=== PATIENT | female | born 1965 | race Caucasian/White ===

== ENCOUNTER 2023-02-12 08:57 | Outpatient (REF) | payer OTHER, SELFPAY ==
[2023-02-12 16:11] LABS: Urine Cytology See Pathology rpt
== END 2023-02-12 08:58 | disposition home or self-care (01) ==
LOC: HO.LNP 08:57
PROVIDERS: PCP Internal Medicine; Visit Provider Nurse Practitioner Family
DX: R31.29 Other microscopic hematuria (principal); N28.89 Other specified disorders of kidney and ureter
CPT/HCPCS: 88112; 99202

== ENCOUNTER 2023-03-12 10:25 | Outpatient (REF) | payer OTHER, SELFPAY ==
--- NOTE | ~2023-03-12 | MR_ITS ---
EXAMINATION: MRI kidney with and without contrast CLINICAL INFORMATION: Follow-up left renal mass COMPARISON: Previous ultrasound August 2019, MRI of the abdomen September [address] of the abdomen and pelvis August 2018 TECHNIQUE: Sagittal axial and coronal sequences through the abdomen with and without IV contrast. Patient received 0.5 mL IV Gadavist contrast. FINDINGS: The lung bases are clear. The liver is normal in size and contour. There is slight signal loss in the liver on out of phase sequences suggestive of mild fatty infiltration. Liver is otherwise normal. No focal liver lesion. Normal gallbladder. No biliary duct dilatation. The pancreas is normal. The main pancreatic duct does not appear dilated. The spleen is normal. Adrenal glands are normal. There is a 1.3 x 1.7 x 1.6 cm lesion exophytic to the of the left kidney. This is low signal on T1-weighted sequences. This is slightly heterogeneous but predominantly high signal on T2 weighted sequences. This demonstrates enhancement suggestive of a solid renal mass. This is increased in size from previous MRI with this measured 1.1 x 1 x 1.1 cm. The kidneys are otherwise normal. Visualized bowel is normal. No ascites or adenopathy. No hernia. Normal vascular structures. The left renal vein and IVC are patent. Mild degenerative disc disease. Otherwise normal bone marrow signal. MR/MR kidney wo/w con IMPRESSION: Interval increase in size in the solid mass exophytic to the lower pole of the left kidney now measuring 1.3 x 1.7 x 1.6 cm. Mild fatty infiltration of the liver.
== END 2023-03-12 10:26 | disposition home or self-care (01) ==
LOC: HO.MRI 10:25
PROVIDERS: PCP Internal Medicine; Visit Provider Nurse Practitioner Family
DX: N28.89 Other specified disorders of kidney and ureter (principal)
CPT/HCPCS: 74181; A9585

== ENCOUNTER 2023-03-20 10:00 | Outpatient (REF) | payer OTHER, SELFPAY ==
--- NOTE | ~2023-03-20 | US_ITS ---
EXAMINATION: US RETROPERITONEAL COMPLETE (RENAL) CLINICAL INFORMATION: Kidney cyst, microscopic hematuria. COMPARISON: MR kidney without contrast dated 03/12/2023. Renal only ultrasound dated 08/22/2019 and 02/28/2019. CT abdomen and pelvis with contrast dated 09/12/2018. TECHNIQUE: Real-time imaging of the kidneys and bladder. FINDINGS: RIGHT KIDNEY: 10.5 x 3.5 x 5.1 cm (SAG x AP x TRV). The kidney is normal in size, contour, and echogenicity. Renal cortical thickness is normal. No renal calculi or focal parenchymal lesions. LEFT KIDNEY: 11.8 x 5.5 x 6.0 cm (SAG x AP x TRV). The kidney is normal in size, contour, and echogenicity. Renal cortical thickness is normal. No calculi or focal parenchymal lesions. There is mild pelviectasis, without christian hydronephrosis. BLADDER: Well distended and normal. Bilateral ureteral jets are demonstrated. Prevoid bladder volume is 313 mL. Postvoid bladder volume is 10 mL. US/US retroperitoneal comp IMPRESSION: Unremarkable examination.
== END 2023-03-20 10:01 | disposition home or self-care (01) ==
LOC: HO.US 10:00
PROVIDERS: PCP Internal Medicine; Visit Provider Nurse Practitioner Family
DX: N28.1 Cyst of kidney, acquired (principal); R31.29 Other microscopic hematuria
CPT/HCPCS: 76770

== ENCOUNTER 2023-03-27 08:40 | Outpatient (REF) | payer OTHER, SELFPAY | END 2023-03-27 08:41 | disposition home or self-care (01) | LOC: HO.LNP 08:40 | PROVIDERS: PCP Internal Medicine; Visit Provider Nurse Practitioner Family | DX: N39.0 Urinary tract infection, site not specified (principal); N28.89 Other specified disorders of kidney and ureter; R31.29 Other microscopic hematuria; R35.0 Frequency of micturition; Z79.899 Other long term (current) drug therapy | CPT/HCPCS: 87086; 99212 ==

== ENCOUNTER 2023-05-01 08:33 | Outpatient (AMB) | payer OTHER, SELFPAY ==
--- NOTE | 2023-05-01 08:55 | MHC.OFFVIS ---
Intake Intake Visit Reasons: follow up/PVR Intake Note: Patient is present follow up PVR/UTI Urology Medications: previously treated with macrobid Blood Thinner: none PVR: 16ml's Mobile Development Manager Required: No Accompanied by: Self / Same As Patient Allergies No Known Allergies Allergy (Verified 05/03/23 16:51) Medication List - Last Reconciled 05/03/23 by DARRYL Jenkins ascorbate calcium (vitamin C) 500 mg PO DAILY cholecalciferol (vitamin D3) 125 mcg PO DAILY estradiol 0.01%(0.1mg/gram) vaginally 3 times a week; pea sized amount to urethra 3 times a week 30 days famotidine (Heartburn Relief (famotidine)) 10 mg PO BID HPI HPI Comments History of Present Illness Details Chyna is a pleasant 57-year-old female patient of . She presents to the office today for a follow up. Of note, patient was seen approxitmately 2 months ago at which time a retroperitoneal ultrasound was ordered for further assessment evaluation. Of note, patient with a past medical history of renal cysts at which time a MRI renal mass protocol was ordered during her last office visit. MRI 03/10-- showing interval increase in size in the solid mass exopphytic to the lower pole of the left kidney now measuring 1.3 x 1.7 x 1.6 cm. Mild fatty infiltration of the liver. In review of patient's chart it appears when patient was following with Dr. Teixeira left lower pole exophytic renal mass measured approximately 1.9 cm. She has had a prior negative renal biopsy in 2019. Discussed surveillance monitoring versus further interventions with repeat biopsy. Recent retroperitoneal ultrasound results reviewed with the patient today. Right kidney with no calculi, lesions, and or hydronephrosis noted. Left kidney with no calculi or lesions noted. The bladder is well distended and normal. Pre void bladder volume is approximately 315 mL. Postvoid bladder volume is 10 mL. In office urinalysis results reviewed with the patient today. She denies urinary urgency, incontinence, nocturia, hematuria, dysuria, foul smelling urine, changes to urinary stream, flank pain, fever, and or chills. PVR 16mls. She otherwise denies any issues or concerns at this time. She discusses her upcoming trip to [place] to visit her special needs son who will be undergoing a biopsy. [facility] Medical History ROB II (cervical intraepithelial neoplasia II) Class 1 obesity Depression, major Diverticulosis of colon Dysphagia Family history of colon cancer Family history of glaucoma in father Hiatal hernia with gastroesophageal reflux Internal hemorrhoids Kidney mass LGSIL Pap smear of vagina LACHO (obstructive sleep apnea) Pain in right shoulder Polyp of sigmoid colon Pseudocholinesterase deficiency Vitamin D deficiency Surgical History History of colonoscopy Review of Systems Const All systems reviewed & are unremarkable except as noted in HPI and below Reports no additional complaints Eyes Reports no additional complaints ENT Reports no additional complaints Card Reports no additional complaints Resp Reports no additional complaints GI Reports no additional complaints Reports as per HPI Musc Reports no additional complaints Neuro Reports no additional complaints Psych Reports no additional complaints Taj/Lymph Reports no additional complaints Aller/Immun Reports no additional complaints Physical Exam Const General: cooperative, healthy appearing, comfortable, no acute distress, well developed, alert and awake Orientation/consciousness: patient oriented x3 Limitations: no limitations HEENT Head: Yes normal to inspection, Yes normocephalic and Yes atraumatic Ears: hearing grossly normal bilaterally Eyes General: appearance normal, both eyes and all related structures Neck Neck: Yes normal visual inspection and Yes trachea midline Chest Chest palpation & inspection: normal inspection of the chest Resp Effort & Inspection: normal respiratory effort and able to speak in complete sentences Cardio Rate: regular rate GI Inspection: Yes normal to inspection General: Yes no CVA tenderness Back/Spine/Pelvis Back: no CVA tenderness Skin General skin exam: no rashes or lesions noted Neuro General: patient oriented x3 Extrem General: Yes normal to inspection Psych Appearance: grossly normal and well kempt Mental Status: mental status grossly normal Speech and movement: Normal speech and movement present and Clear speech present Affect: normal affect Attitude: cooperative Thought process: Normal thought process present Thought content: Normal thought content present Insight: Good insight present (Psych) Judgement: Good judgement present (Psych) Results AMB Urinalysis, Automated UA Leukoctes 70 Brody/uL Last Edit by Charlie Brown on 05/01/23 09:08 UA Nitrite Last Edit by Charlie Brown on 05/01/23 09:08 UA Urobilinogen 0.2 mg/dL Last Edit by Charlie Brown on 05/01/23 09:08 UA Protein 0 mg/dL Last Edit by Charlie Brown on 05/01/23 09:08 UA pH 6.0 Last Edit by Charlie Brown on 05/01/23 09:08 UA Blood 80 Nicolas/uL Last Edit by Charlie Brown on 05/01/23 09:08 UA Specific [place] 1.030 Last Edit by Charlie Brown on 05/01/23 09:08 UA Ketone Negative Last Edit by Charlie Brown on 05/01/23 09:08 UA Bilirubin 1 mg/dL Last Edit by Charlie Brown on 05/01/23 09:08 UA Glucose 0 mg/dL Last Edit by Charlie Brown on 05/01/23 09:08 Results Reviewed Results Reviewed: Laboratory Last Values Urine pH (Auto) 6.0 05/01/23 08:58 Specific [place] (Auto) 1.030 05/01/23 08:58 Urine Protein (Auto) 0 mg/dL 05/01/23 08:58 Glucose (UA)(Auto) 0 mg/dL 05/01/23 08:58 Urine Ketones (Auto) Negative 05/01/23 08:58 Urine Blood (Auto) 80 Nicolas/uL 05/01/23 08:58 Urine Bilirubin (Auto) 1 mg/dL 05/01/23 08:58 Urine Urobilinogen (Auto) 0.2 mg/dL 05/01/23 08:58 Leukocyte Esterase (Auto) 70 Brody/uL 05/01/23 08:58 Date of Service: 03/20/23 Procedure(s): US retroperitoneal comp EXAMINATION: US RETROPERITONEAL COMPLETE (RENAL) FINDINGS: RIGHT KIDNEY: 10.5 x 3.5 x 5.1 cm (SAG x AP x TRV). The kidney is normal in size, contour, and echogenicity. Renal cortical thickness is normal. No renal calculi or focal parenchymal lesions. LEFT KIDNEY: 11.8 x 5.5 x 6.0 cm (SAG x AP x TRV). The kidney is normal in size, contour, and echogenicity. Renal cortical thickness is normal. No calculi or focal parenchymal lesions. There is mild pelviectasis, without christian hydronephrosis. BLADDER: Well distended and normal. Bilateral ureteral jets are demonstrated. Prevoid bladder volume is 313 mL. Postvoid bladder volume is 10 mL. IMPRESSION: Unremarkable examination. Assessment & Plan Assessment & Plan (1) Microhematuria: Code(s): R31.29 - Other microscopic hematuria (2) Renal cyst: Code(s): N28.1 - Cyst of kidney, acquired Plan In office urinalysis results reviewed with the patient today; as noted above. Recent retroperitoneal ultrasound results reviewed with the patient today; as noted above. Patient denies any bothersome urinary symptoms at this time. Discussed at length surveillance monitoring of renal cyst/renal mass verses biopsy Will continue with surveillance monitoring Start Estrace cream as discussed and prescribed Discussed, educated, and encouraged on the importance of drinking plenty of water daily. Follow-up in 3 months; if not sooner with any issues, concerns, and or questions. Orders: Orders Urine Cytology 05/01/23 R31.29 - Other microscopic hematuria AMB Urinalysis Automated 05/01/23 Z13.9 - Encounter for screening, unspecified AMB Post Void Residual by ultrasound 05/01/23 N39.0 - Urinary tract infection, site not specified Medications: New estradiol 0.01%(0.1mg/gram) vaginally 3 times a week; pea sized amount to urethra 3 times a week 30 days 42.5 grams 0RF Discontinued nitrofurantoin monohyd/m-cryst 100 mg (Macrobid) Discontinued Reason: Patient Completed Course 100 mg PO Q12H 7 days 14 caps 0RF Patient Instructions: The patient had an opportunity to ask questions regarding the treatment plan. All questions were answered. Physical exam, labs, and imaging were discussed and reviewed in detail. As well as risks, benefits, and discussion of treatment choices. No major barriers to understanding were identified. The patient expressed understanding and agreement with the above treatment plan. The patient was made aware they should contact our office by phone for worsening of their current condition, the appearance of new symptoms, or with any questions or concerns. Compliance is encouraged with any medications and follow up testing that is ordered. It is a privilege to be allowed the opportunity to participate in? your urological care.? Again, if you have any questions or concerns If you have any questions or concerns please do not hesitate to contact me. The office is [phone]. This note is constructed using voice recognition software. While every effort has been made to ensure accuracy designer errors may have been included. Yours sincerely, DARRYL Jenkins Coding Level of Care Code Est Pt Level 4 (98316) Diagnoses Microhematuria R31.29 Renal cyst N28.1
== END 2023-05-01 09:46 | disposition home or self-care (01) ==
PROVIDERS: PCP Internal Medicine; Visit Provider Nurse Practitioner Family
DX: R31.29 Other microscopic hematuria (principal); N28.1 Cyst of kidney, acquired
CPT/HCPCS: 99214

== ENCOUNTER 2023-05-01 08:33 | Outpatient (REF) | payer OTHER, SELFPAY ==
[2023-05-02 03:38] LABS: Urine Cytology See Pathology rpt
== END 2023-05-01 08:34 | disposition home or self-care (01) ==
LOC: HO.LNP 08:33
PROVIDERS: PCP Internal Medicine; Visit Provider Nurse Practitioner Family
DX: R31.29 Other microscopic hematuria (principal); N28.1 Cyst of kidney, acquired
CPT/HCPCS: 88112; 99212

== ENCOUNTER 2023-12-21 13:29 | Outpatient (AMB) | payer OTHER, SELFPAY ==
--- NOTE | 2023-12-21 13:41 | A.OFFVIS_ITS ---
Intake Intake Visit Reasons: 3m follow up Intake Note: Patient presents today for follow up visit for microhematuria and renal cyst Urology Medications: Estrace Cream Blood Thinner: None Patient stated feeling a little bit concerned about the side effects and the use and application of the estrace cream, she want to discuss the medication with provider again before start using the medication . Rounder Hand Required: No Accompanied by: Self / Same As Patient Allergies No Known Allergies Allergy (Verified 12/21/23 14:37) Medication List - Last Reconciled 12/21/23 by DARRYL Jenkins cholecalciferol (vitamin D3) 125 mcg PO DAILY estradiol 0.01%(0.1mg/gram) vaginally 3 times a week; pea sized amount to urethra 3 times a week 30 days HPI HPI Comments History of Present Illness Details Chyna is a pleasant 58-year-old female patient of Dr.Rivera- Martinez. She has a past medical history of vitamin-D deficiency, obstructive sleep apnea, kidney mass, internal hemorrhoids, hiatal hernia with GERD, depression, and ROB II. She presents to the office today for a follow up. Of note, patient was seen approxitmately 8 months ago months ago at which time bell mmendations were made for three-month follow-up however patient discusses being away in [place] since her last office visit here. In discussion with the patient today she reports to be doing and feeling well. She reports having been in [place] as her son lives there and is undergoing multiple medical issues. Patient with a past medical history of renal cyst/renal mass and previous workup has included renal MRI as well as retroperitoneal ultrasound. These results are as follows. MRI 03/10-- showing interval increase in size in the solid mass exopphytic to the lower pole of the left kidney now measuring 1.3 x 1.7 x 1.6 cm. Mild fatty infiltration of the liver. In review of patient's chart it appears when patient was following with Dr. Teixeira left lower pole exophytic renal mass measured approximately 1.9 cm. She has had a prior negative renal biopsy in 2019. Retroperitoneal ultrasound 04/10 results noted right kidney with no calculi, lesions, and or hydronephrosis noted. Left kidney with no calculi or lesions noted. The bladder is well distended and normal. Pre void bladder volume is approximately 315 mL. Postvoid bladder volume is 10 mL. In office urinalysis results reviewed with the patient today. She continues with microscopic hematuria. Urine was sent for urine cytology at last office visit these results were reviewed with the patient today. 02/08: Negative for high-grade urothelial carcinoma, 05/10--Negative for high-grade urothelial carcinoma. She reports to have not started Estrace cream as prescribed during last office visit as she was unsure of side effects and was waiting for today's appointment to further discuss. Discussed at length potential side effects of the Estrace cream. When asked she does report intermittent/infrequent episodes o f urinary urgency, urinary frequency, and episodes of incontinence if not near a bathroom. She reports having been told many years ago that she had a prolapsed bladder. She refused physical exam today. She discusses having follow-up appointment tomorrow with magneto repairer and will further assess at that time. Discussed at length potential causes of prolapse bladder. Discussed further urological management of prolapsed bladder. Discussed further treatment options if indeed she does have a prolapsed bladder and discussed grading of proplased bladder. She currently does not wish to undergo any workup or treatment options at this time. She discusses that she will go back to [place] within the next few days and be back in February. Discussed, educated, and stressed the importance of following up as discussed. Discussed obtaining CT urogram for surveillance monitoring of renal mass. Discussed importance of following-up as recommended to not delay any treatment or diagnosis. She otherwise denies nocturia, hematuria, dysuria, foul smelling urine, changes to urinary stream, flank pain, fever, and or chills. PVR 0mls. She otherwise denies any issues or concerns at this time. [facility] Medical History Vitamin D deficiency Pseudocholinesterase deficiency Polyp of sigmoid colon Pain in right shoulder LACHO (obstructive sleep apnea) Class 1 obesity LGSIL Pap smear of vagina Kidney mass Internal hemorrhoids Hiatal hernia with gastroesophageal reflux Family history of glaucoma in father Family history of colon cancer Dysphagia Diverticulosis of colon Depression, major ROB II (cervical intraepithelial neoplasia II) Surgical History History of colonoscopy Review of Systems Const Reports no additional complaints Eyes Reports no additional complaints ENT Reports no additional complaints Card Reports no additional complaints Resp Reports as per HPI GI Reports as per HPI Reports as per HPI Musc Reports no additional complaints Neuro Reports no additional complaints Psych Reports as per HPI Endo Reports no additional complaints Taj/Lymph Reports no additional complaints Aller/Immun Reports no additional complaints Physical Exam Const General: cooperative, healthy appearing, comfortable, no acute distress, well developed, alert and awake Orientation/consciousness: patient oriented x3 Limitations: no limitations HEENT Head: Yes normal to inspection, Yes normocephalic and Yes atraumatic Ears: hearing grossly normal bilaterally Eyes General: appearance normal, both eyes and all related structures Neck Neck: Yes normal visual inspection and Yes trachea midline Chest Chest palpation & inspection: normal inspection of the chest Resp Effort & Inspection: normal respiratory effort and able to speak in complete sentences Cardio Rate: regular rate GI Inspection: Yes normal to inspection General: Yes no CVA tenderness Back/Spine/Pelvis Back: no CVA tenderness Skin General skin exam: no rashes or lesions noted Neuro General: patient oriented x3 Extrem General: Yes normal to inspection Psych Appearance: grossly normal and well kempt Mental Status: mental status grossly normal Speech and movement: Normal speech and movement present and Clear speech present Affect: normal affect Attitude: cooperative Thought process: Normal thought process present Thought content: Normal thought content present Insight: Good insight present (Psych) Judgement: Good judgement present (Psych) Results AMB Urinalysis, Automated UA Leukoctes 15 Brody/uL Last Edit by Minerva Martinez CMA on 12/21/23 13:59 UA Nitrite Negative Last Edit by Minerva Martinez CMA on 12/21/23 13: 59 UA Urobilinogen 0.2 mg/dL Last Edit by Minerva Martinez CMA on 4 13:59 UA Protein 0 mg/dL Last Edit by Minerva Martinez CMA on 12/21/23 13:59 UA pH 6.0 Last Edit by Minerva Martinez CMA on 12/21/23 13:59 UA Blood 80 Nicolas/uL Last Edit by Minerva Martinez CMA on 12/21/23 13:59 UA Specific [place] 1.020 Last Edit by Minerva Martinez CMA on 13:59 UA Ketone Negative Last Edit by Minerva Martinez CMA on 12/21/23 13:5 9 UA Bilirubin 0 mg/dL Last Edit by Minerva Martinez CMA on 12/21/23 13: 59 UA Glucose 0 mg/dL Last Edit by Minerva Martinez CMA on 12/21/23 13:59 Results Reviewed Results Reviewed: Laboratory Last Values Urine pH (Auto) 6.0 12/21/23 13:53 Specific [place] (Auto) 1.020 12/21/23 13:53 Urine Protein (Auto) 0 mg/dL 12/21/23 13:53 Glucose (UA)(Auto) 0 mg/dL 12/21/23 13:53 Urine Ketones (Auto) Negative 12/21/23 13:53 Urine Blood (Auto) 80 Nicolas/uL 12/21/23 13:53 Urine Nitrite (Auto) Negative 12/21/23 13:53 Urine Bilirubin (Auto) 0 mg/dL 12/21/23 13:53 Urine Urobilinogen (Auto) 0.2 mg/dL 12/21/23 13:53 Leukocyte Esterase (Auto) 15 Brody/uL 12/21/23 13:53 Assessment & Plan Assessment & Plan (1) Kidney mass: Code(s): N28.89 - Other specified disorders of kidney and ureter (2) Renal cyst: Code(s): N28.1 - Cyst of kidney, acquired (3) Urinary frequency: Code(s): R35.0 - Frequency of micturition (4) Microhematuria: Code(s): R31.29 - Other microscopic hematuria Plan In office urinalysis results reviewed with the patient today; as noted above. Start Estrace cream as discussed and prescribed. Discussed at length importance of following up as planned Will obtain CT urogram for further assessment evaluation. BUN and creatinine ordered for imaging Patient currently denies any bothersome urinary issues or concerns. She is happy with her current voiding parameters. Discussed further assessment of question prolapsed bladder ; however patient declines. Discussed at length potential causes of microscopic hematuria, renal masses, and or prolapse bladder; this was discussed at length. Follow-up in February with CT urogram to be completed prior; or sooner with any issues, concerns, and or questions. Orders: Orders Blood Urea Nitrogen Today N28.1 - Cyst of kidney, acquired, N28.89 - Other specified disorders of kidney and ureter, R31.29 - Other microscopic hematuria, R35.0 - Frequency of micturition AMB Urinalysis Automated Today R33.9 - Retention of urine, unspecified CT urogram Today N28.1 - Cyst of kidney, acquired, N28.89 - Other specified disorders of kidney and ureter Creatinine Today N28.1 - Cyst of kidney, acquired, N28.89 - Other specified disorders of kidney and ureter, R31.29 - Other microscopic hematuria, R35.0 - Frequency of micturition Patient Instructions: The patient had an opportunity to ask questions regarding the treatment plan. All questions were answered. Physical exam, labs, and imaging were discussed and reviewed in detail. As well as risks, benefits, and discussion of treatment choices. No major barriers to understanding were identified. The patient expressed understanding and agreement with the above treatment plan. The patient was made aware they should contact our office by phone for worsening of their current condition, the appearance of new symptoms, or with any questions or concerns. Compliance is encouraged with any medications and follow up testing that is ordered. It is a privilege to be allowed the opportunity to participate in? your urological care.? Again, if you have any questions or concerns If you have any questions or concerns please do not hesitate to contact me. The office is [phone]. This note is constructed using voice recognition software. While every effort has been made to ensure accuracy workers compensation claims examiner errors may have been included. Yours sincerely, DARRYL Jenkins Coding Level of Care Code Est Pt Level 4 (23975) Diagnoses Kidney mass N28.89 Renal cyst N28.1 Urinary frequency R35.0 Microhematuria R31.29 Time Spent (min) 35
== END 2023-12-21 14:50 | disposition home or self-care (01) ==
PROVIDERS: PCP Internal Medicine; Visit Provider Nurse Practitioner Family
DX: N28.89 Other specified disorders of kidney and ureter (principal); N28.1 Cyst of kidney, acquired; R35.0 Frequency of micturition; R31.29 Other microscopic hematuria; R33.9 Retention of urine, unspecified
CPT/HCPCS: 99214

== ENCOUNTER → 2023-12-21 13:29 | Outpatient (BNVA) | payer OTHER, SELFPAY | PROVIDERS: PCP Internal Medicine; Visit Provider Nurse Practitioner Family | DX: N28.89 Other specified disorders of kidney and ureter (principal); N28.1 Cyst of kidney, acquired; R35.0 Frequency of micturition; R31.29 Other microscopic hematuria | CPT/HCPCS: 81003; 99212 ==

== ENCOUNTER 2024-03-01 08:52 | Outpatient (REF) | payer OTHER, SELFPAY ==
--- NOTE | ~2024-03-01 | CT_ITS ---
EXAMINATION: CT ABDOMEN AND PELVIS WITHOUT AND WITH CONTRAST CLINICAL INFORMATION: Disorders of kidneys and ureters COMPARISON: Ultrasound from 03/20/2023 TECHNIQUE: Noncontrast CT of the abdomen and pelvis is performed followed by split bolus contrast-enhanced images using 85 mL Omnipaque 350 contrast.? Postcontrast imaging is performed during the combined nephrogram and excretion phase. Sagittal and coronal reformatted images were obtained on the technologist's workstation for both the precontrast and postcontrast phases. This CT examination was performed using dose optimization techniques as appropriate, variously including the following: *Automated exposure control *Adjustment of mA and/or kV according to patient size (this includes techniques or standardized protocols for targeted exams where dose is matched to indication/reason for exam; i.e. extremities or head) *Use of iterative reconstruction technique DLP: 657 mGy-cm FINDINGS: LUNG BASES: The visualized lung bases are unremarkable. LIVER, GALLBLADDER, AND BILIARY TREE: The liver is normal in size, shape, and attenuation. No focal hepatic lesion or biliary ductal dilatation is present. The gallbladder is unremarkable with no evidence of radiopaque gallstones, gallbladder wall thickening, or obvious pericholecystic inflammatory changes. PANCREAS: Unremarkable. SPLEEN: Unremarkable. ADRENAL GLANDS: Unremarkable. KIDNEYS AND URETERS: The kidneys are normal in size, shape, and attenuation. No hydronephrosis, hydroureter, or calculi seen. No perinephric stranding. BLADDER: Unremarkable. GASTROINTESTINAL TRACT: The small and large bowel are unremarkable. The appendix is unremarkable. ABDOMINAL WALL: No significant hernia is appreciated. LYMPH NODES: Normal. VASCULAR: Unremarkable. PELVIC VISCERA: Unremarkable. OSSEUS STRUCTURES: Unremarkable. CT/CT urogram IMPRESSION: Unremarkable examination.
[2024-03-01] MEDS: iohexoL 350 MG/ML 100 ML INFUS..BTL IV (09:46)
[2024-03-01 15:34] LABS: Creatinine POC 0.9 mg/dL (0.5-1.4); GFR POC > 60
== END 2024-03-01 08:53 | disposition home or self-care (01) ==
LOC: HO.CT 08:52
PROVIDERS: PCP Internal Medicine; Visit Provider Nurse Practitioner Family
DX: N28.89 Other specified disorders of kidney and ureter (principal); N28.1 Cyst of kidney, acquired
CPT/HCPCS: 74178; 82565; Q9967

== ENCOUNTER 2024-03-07 08:20 | Outpatient (REF) | payer OTHER, SELFPAY | END 2024-03-07 08:21 | disposition home or self-care (01) | LOC: HO.LNP 08:20 | PROVIDERS: PCP Internal Medicine; Visit Provider Nurse Practitioner Family | DX: R31.29 Other microscopic hematuria (principal); R35.0 Frequency of micturition; N28.1 Cyst of kidney, acquired | CPT/HCPCS: 81003; 87086; 99212 ==

== ENCOUNTER 2024-03-07 08:20 | Outpatient (AMB) | payer OTHER, SELFPAY ==
--- NOTE | 2024-03-07 08:28 | A.OFFVIS_ITS ---
Intake Visit Reasons: 2m/CT Intake Note: Patient presents today for follow up visit for microhematuria and renal cyst Urology Medications: None (patient not taking estrace cream) Blood Thinner: None Secondary Teacher Required: No Accompanied by: Self / Same As Patient Allergies No Known Allergies Allergy (Verified 03/07/24 08:55) Medication List - Last Reconciled 03/07/24 by RICHARD Jenkins cholecalciferol (vitamin D3) 125 mcg PO DAILY HPI Comments Details: Chyna is a pleasant 58-year-old female patient of . She has a past medical history of vitamin-D deficiency, obstructive sleep apnea, kidney mass, internal hemorrhoids, hiatal hernia with GERD, depression, and ROB II. She presents to the office today for a follow up of her renal cyst/renal mass. Recent CT results reviewed with the patient today. Bilateral kidneys are normal in size, shape, and attenuation. No hydronephrosis, hydroureter, or calculi seen. No perinephric stranding. The bladder is unremarkable. In office urinalysis results reviewed with the patient today 3+ leukocytes negative nitrates. In discussion with the patient today she does report noting increased episodes of urinary frequency and at times foul-smelling urine. She discusses her ongoing travels to [place] to take care of her son. Previous workup has included MRI 03/10-- showing interval increase in size in the solid mass exopphytic to the lower pole of the left kidney now measuring 1.3 x 1.7 x 1.6 cm. Mild fatty infiltration of the liver. In review of patient's chart it appears when patient was following with Dr. Teixeira left lower pole exophytic renal mass measured approximately 1.9 cm. She has had a prior negative renal biopsy in 2019. Retroperitoneal ultrasound 04/10 results noted right kidney with no calculi, lesions, and or hydronephrosis noted. Left kidney with no calculi or lesions noted. The bladder is well distended and normal. Pre void bladder volume is approximately 315 mL. Postvoid bladder volume is 10 mL. Urine cytology at last office visit these results were reviewed with the patient today. 02/08: Negative for high-grade urothelial carcinoma, 05/10--Negative for high-grade urothelial carcinoma. She discusses that she will go back to [place] within the next few days and be back in April. Discussed, educated, and stressed the importance of following up as discussed. She otherwise denies nocturia, hematuria, dysuria,changes to urinary stream, flank pain, fever, and or chills. She otherwise denies any issues or concerns at this time. [facility] Medical History Vitamin D deficiency Pseudocholinesterase deficiency Polyp of sigmoid colon Pain in right shoulder LACHO (obstructive sleep apnea) Class 1 obesity LGSIL Pap smear of vagina Kidney mass Internal hemorrhoids Hiatal hernia with gastroesophageal reflux Family history of glaucoma in father Family history of colon cancer Dysphagia Diverticulosis of colon Depression, major ROB II (cervical intraepithelial neoplasia II) Surgical History History of colonoscopy Review of Systems Const Reports no additional complaints Eyes Reports no additional complaints ENT Reports no additional complaints Card Reports no additional complaints Resp Reports as per HPI GI Reports as per HPI Reports as per HPI Musc Reports no additional complaints Neuro Reports no additional complaints Psych Reports as per HPI Endo Reports no additional complaints Atj/Lymph Reports no additional complaints Aller/Immun Reports no additional complaints Physical Exam Const General: cooperative, healthy appearing, comfortable, no acute distress, well developed, alert and awake Orientation/consciousness: patient oriented x3 Limitations: no limitations HEENT Head: Yes normal to inspection, Yes normocephalic and Yes atraumatic Ears: hearing grossly normal bilaterally Eyes General: appearance normal, both eyes and all related structures Neck Neck: Yes normal visual inspection and Yes trachea midline Chest Chest palpation & inspection: normal inspection of the chest Resp Effort & Inspection: normal respiratory effort and able to speak in complete sentences Cardio Rate: regular rate GI Inspection: Yes normal to inspection General: Yes no CVA tenderness Back/Spine/Pelvis Back: no CVA tenderness Skin General skin exam: no rashes or lesions noted Neuro General: patient oriented x3 Extrem General: Yes normal to inspection Psych Appearance: grossly normal and well kempt Mental Status: mental status grossly normal Speech and movement: Normal speech and movement present and Clear speech present Affect: normal affect Attitude: cooperative Thought process: Normal thought process present Thought content: Normal thought content present Insight: Fair insight present (Psych) Judgement: Fair judgement present (Psych) Results AMB Urinalysis, Automated UA Leukoctes 500 Brody/uL Last Edit by Charlie Brown on 03/07/24 08:48 UA Nitrite Negative Last Edit by Charlie Brown on 03/07/24 08:48 UA Urobilinogen 0.2 mg/dL Last Edit by Charlie Brown on 03/07/24 08:48 UA Protein 15 mg/dL Last Edit by Charlie Brown on 03/07/24 08:48 UA pH 5.5 Last Edit by Charlie Brown on 03/07/24 08:48 UA Blood 80 Nicolas/uL Last Edit by Charlie Brown on 03/07/24 08:48 UA Specific [place] 1.020 Last Edit by Charlie Brown on 03/07/24 08:48 UA Ketone Negative Last Edit by Charlie Brown on 03/07/24 08:48 UA Bilirubin 0 mg/dL Last Edit by Charlie Brown on 03/07/24 08:48 UA Glucose 0 mg/dL Last Edit by Charlie Brown on 03/07/24 08:48 Results Reviewed Results Reviewed: Laboratory Last Values Urine pH (Auto) 5.5 03/07/24 08:31 Specific [place] (Auto) 1.020 03/07/24 08:31 Urine Protein (Auto) 15 mg/dL 03/07/24 08:31 Glucose (UA)(Auto) 0 mg/dL 03/07/24 08:31 Urine Ketones (Auto) Negative 03/07/24 08:31 Urine Blood (Auto) 80 Nicolas/uL 03/07/24 08:31 Urine Nitrite (Auto) Negative 03/07/24 08:31 Urine Bilirubin (Auto) 0 mg/dL 03/07/24 08:31 Urine Urobilinogen (Auto) 0.2 mg/dL 03/07/24 08:31 Leukocyte Esterase (Auto) 500 Brody/uL 03/07/24 08:31 Date of Service: 03/01/24 EXAMINATION: CT ABDOMEN AND PELVIS WITHOUT AND WITH CONTRAST FINDINGS: LUNG BASES: The visualized lung bases are unremarkable. LIVER, GALLBLADDER, AND BILIARY TREE: The liver is normal in size, shape, and attenuation. No focal hepatic lesion or biliary ductal dilatation is present. The gallbladder is unremarkable with no evidence of radiopaque gallstones, gallbladder wall thickening, or obvious pericholecystic inflammatory changes. PANCREAS: Unremarkable. SPLEEN: Unremarkable. ADRENAL GLANDS: Unremarkable. KIDNEYS AND URETERS: The kidneys are normal in size, shape, and attenuation. No hydronephrosis, hydroureter, or calculi seen. No perinephric stranding. BLADDER: Unremarkable. GASTROINTESTINAL TRACT: The small and large bowel are unremarkable. The appendix is unremarkable. ABDOMINAL WALL: No significant hernia is appreciated. LYMPH NODES: Normal. VASCULAR: Unremarkable. PELVIC VISCERA: Unremarkable. OSSEUS STRUCTURES: Unremarkable. IMPRESSION: Unremarkable examination. Assessment & Plan Assessment & Plan (1) Urinary frequency: Code(s): R35.0 - Frequency of micturition Category: Medical (2) Microhematuria: Code(s): R31.29 - Other microscopic hematuria Category: Medical Plan In office urinalysis results reviewed with the patient today; was as noted above; will send for urine culture; will await results for potential treatment. Discussed possible near future microgen and or in office cystoscopy. Recent CT results reviewed with the patient today; as noted above. Discussed, educated, and stressed the importance of taking medications as prescribed; patient was given Estrace cream however does not wish to trial this at this time. Discussed UTI prevention with D mannose supplement, vitamin-C, increasing fluid intake, behavioral therapy with timed voiding, perineal hygiene and postcoital voiding, and management of constipation with stool softeners and increased fiber intake. Discussed follow-up in 1 month however patient will be in [place] will follow-up once she gets back in April. Discussed seeking medical treatment if symptoms worsen. Follow-up in April as planned in discussed; or sooner with any issues, concerns, and or questions. Orders: Orders AMB Urinalysis Automated Today Z13.9 - Encounter for screening, unspecified Patient Instructions: The patient had an opportunity to ask questions regarding the treatment plan. All questions were answered. Physical exam, labs, and imaging were discussed and reviewed in detail. As well as risks, benefits, and discussion of treatment choices. No major barriers to understanding were identified. The patient expressed understanding and agreement with the above treatment plan. The patient was made aware they should contact our office by phone for worsening of their current condition, the appearance of new symptoms, or with any questions or concerns. Compliance is encouraged with any medications and follow up testing that is ordered. It is a privilege to be allowed the opportunity to participate in? your urological care.? Again, if you have any questions or concerns If you have any questions or concerns please do not hesitate to contact me. The office is [phone]. This note is constructed using voice recognition software. While every effort has been made to ensure accuracy dispatcher bus and trolley errors may have been included. Yours sincerely, DARRYL Jenkins Coding Level of Care Code Est Pt Level 4 (92287) Diagnoses Urinary frequency R35.0 Microhematuria R31.29
== END 2024-03-07 08:57 | disposition home or self-care (01) ==
PROVIDERS: PCP Internal Medicine; Visit Provider Nurse Practitioner Family
DX: R35.0 Frequency of micturition (principal); R31.29 Other microscopic hematuria; Z13.9 Encounter for screening, unspecified
CPT/HCPCS: 99214

== ENCOUNTER 2025-07-03 11:39 | Outpatient (REF) | payer OTHER, SELFPAY | END 2025-07-03 11:40 | disposition home or self-care (01) | LOC: HO.LNP 11:39 | PROVIDERS: PCP Internal Medicine; Visit Provider Nurse Practitioner Family | DX: N28.1 Cyst of kidney, acquired (principal); N39.0 Urinary tract infection, site not specified; Z13.89 Encounter for screening for other disorder | CPT/HCPCS: 81003; 88112 ==

== ENCOUNTER 2025-07-03 11:39 | Outpatient (AMB) | payer OTHER, SELFPAY ==
--- NOTE | 2025-07-03 11:41 | MHC.OFFVIS ---
Intake Visit Reasons: follow up/renal mass Allergies No Known Allergies Allergy (Verified 03/07/24 08:55) Medication List - Last Reconciled 07/03/25 by DARRYL Jenkins cholecalciferol (vitamin D3) 125 mcg PO DAILY HPI Comments Details: Chyna is a pleasant 60-year-old female patient of . She has a past medical history of vitamin-D deficiency, obstructive sleep apnea, kidney mass, internal hemorrhoids, hiatal hernia with GERD, depression, and ROB II. She presents to the office today for a follow up of her renal cyst/renal mass. In discussion with the patient today she reports she was unable to follow-up as planned as she travels frequently to [place] to care for her child who has medical needs. She discusses most recently she has been experiencing issues with foul-smelling urine and has followed up with her [facility] guitar technician provider and was recently prescribed Macrobid for a positive urine culture. She brings with her today urine culture results that note 07/13 E coli. She reports she has been on Macrobid for the last 3 days and does feel foul-smelling urine is improving. We did discuss importance of following up as planned as well as surveillance monitoring of renal cyst. She currently denies any bothersome issues. She denies urinary urgency, urinary frequency, incontinence, nocturia, hematuria, dysuria, foul smelling urine, changes to urinary stream, flank pain, fever, and or chills. She is happy with her current voiding parameters. She discusses her chalk machine operator was discussing topical Estrace cream for prevention of urinary tract infections. We did discuss at length potential causes of recurrent urinary tract infections as well as further treatment options and risks and benefits of these treatment options. In office urinalysis results reviewed with the patient today. Previous workup for renal cyst is as follows: Previous workup has included MRI 03/10-- showing interval increase in size in the solid mass exopphytic to the lower pole of the left kidney now measuring 1.3 x 1.7 x 1.6 cm. Mild fatty infiltration of the liver. In review of patient's chart it appears when patient was following with Dr. Teixeira left lower pole exophytic renal mass measured approximately 1.9 cm. She has had a prior negative renal biopsy in 2019. Retroperitoneal ultrasound 04/10 results noted right kidney with no calculi, lesions, and or hydronephrosis noted. Left kidney with no calculi or lesions noted. The bladder is well distended and normal. Pre void bladder volume is approximately 315 mL. Postvoid bladder volume is 10 mL. 02/08: Negative for high-grade urothelial carcinoma, 05/10--Negative for high-grade urothelial carcinoma. 03/11 CT urogram noted bilateral kidneys are normal in size, shape, and attenuation. No hydronephrosis, hydroureter, or calculi seen bilaterally. No perinephric stranding. The bladder is unremarkable. She otherwise denies any issues or concerns at this time. [facility] Medical History Vitamin D deficiency Pseudocholinesterase deficiency Polyp of sigmoid colon Pain in right shoulder LACHO (obstructive sleep apnea) Class 1 obesity LGSIL Pap smear of vagina Kidney mass Internal hemorrhoids Hiatal hernia with gastroesophageal reflux Family history of glaucoma in father Family history of colon cancer Dysphagia Diverticulosis of colon Depression, major ROB II (cervical intraepithelial neoplasia II) Surgical History History of colonoscopy Review of Systems Const Reports no additional complaints Eyes Reports no additional complaints ENT Reports no additional complaints Card Reports no additional complaints Resp Reports as per HPI GI Reports as per HPI Reports as per HPI Musc Reports no additional complaints Neuro Reports no additional complaints Psych Reports as per HPI Endo Reports no additional complaints Taj/Lymph Reports no additional complaints Aller/Immun Reports no additional complaints Physical Exam Const General: cooperative, healthy appearing, comfortable, no acute distress, well developed, alert and awake Orientation/consciousness: patient oriented x3 Limitations: no limitations HEENT Head: Yes normal to inspection, Yes normocephalic and Yes atraumatic Ears: hearing grossly normal bilaterally Eyes General: appearance normal, both eyes and all related structures Neck Neck: Yes normal visual inspection and Yes trachea midline Chest Chest palpation & inspection: normal inspection of the chest Resp Effort & Inspection: normal respiratory effort and able to speak in complete sentences Cardio Rate: regular rate GI Inspection: Yes normal to inspection General: Yes no CVA tenderness Back/Spine/Pelvis Back: no CVA tenderness Skin General skin exam: no rashes or lesions noted Neuro General: patient oriented x3 Extrem General: Yes normal to inspection Psych Appearance: grossly normal and well kempt Mental Status: mental status grossly normal Speech and movement: Normal speech and movement present and Clear speech present Affect: normal affect Attitude: cooperative Thought process: Normal thought process present Thought content: Normal thought content present Insight: Fair insight present (Psych) Judgement: Fair judgement present (Psych) Results AMB Urinalysis, Automated UA Leukoctes 15 Brody/uL Last Edit by DARIA Ellis on 07/03/25 15:44 UA Nitrite Last Edit by Katerin Bland [facility] on 07/03/25 15:44 UA Urobilinogen 0.2 mg/dL Last Edit by Katerin Bland [facility] on 07/03/25 15:44 UA Protein 15 mg/dL Last Edit by Katerin Bland [facility] on 07/03/25 15:44 UA pH 5.5 Last Edit by Katerin Bland [facility] on 07/03/25 15:44 UA Blood 80 Nicolas/uL Last Edit by Katerin Bland [facility] on 07/03/25 15:44 UA Specific [place] 1.025 Last Edit by Katerin Bland [facility] on 07/03/25 15:44 UA Ketone Last Edit by Katerin Bland [facility] on 07/03/25 15:44 UA Bilirubin 1 mg/dL Last Edit by Katerin Bland [facility] on 07/03/25 15:44 UA Glucose 0 mg/dL Last Edit by Katerin Bland [facility] on 07/03/25 15:44 Results Reviewed Results Reviewed: Laboratory Last Values Urine pH (Auto) 5.5 07/03/25 15:43 Specific [place] (Auto) 1.025 07/03/25 15:43 Urine Protein (Auto) 15 mg/dL 07/03/25 15:43 Glucose (UA)(Auto) 0 mg/dL 07/03/25 15:43 Urine Blood (Auto) 80 Nicolas/uL 07/03/25 15:43 Urine Bilirubin (Auto) 1 mg/dL 07/03/25 15:43 Urine Urobilinogen (Auto) 0.2 mg/dL 07/03/25 15:43 Leukocyte Esterase (Auto) 15 Brody/uL 07/03/25 15:43 Assessment & Plan Assessment & Plan (1) Microhematuria: Code(s): R31.29 - Other microscopic hematuria Category: Medical (2) Renal cyst: Code(s): N28.1 - Cyst of kidney, acquired Category: Medical (3) Complicated urinary tract infection: Code(s): N39.0 - Urinary tract infection, site not specified Category: Medical Plan In office urinalysis results reviewed with the patient today; as noted above; will send for urine cytology. We discussed importance of completing antibiotic therapy as prescribed by chalk machine operator provider. Start Estrace cream as discussed and prescribed. We discussed importance of following up as planned. Will obtain retroperitoneal ultrasound for further assessment evaluation. She currently denies any bothersome urinary issues or concerns. She reports be happy with current voiding parameters. Discussed UTI prevention with D mannose supplement, vitamin-C, increasing fluid intake, behavioral therapy with timed voiding, perineal hygiene and postcoital voiding, and management of constipation with stool softeners and increased fiber intake. We did discussed potential near future in office cystoscopy for further assessment evaluation. Follow-up in 1-3 months with imaging to be completed prior; or sooner with any issues, concerns, and or questions. Orders: Orders Urine Cytology Today R31.29 - Other microscopic hematuria AMB Urinalysis Automated Today Z13.9 - Encounter for screening, unspecified US retroperitoneal comp Today N28.1 - Cyst of kidney, acquired, N39.0 - Urinary tract infection, site not specified, R31.29 - Other microscopic hematuria Medications: New estradiol 0.01%(0.1mg/gram) (Estrace) Apply a pea-sized amount to urethra daily x1 month and then 3 times per week thereafter 1 g vaginal 3XW 42.5 grams 3RF 90 days Patient Instructions: The patient had an opportunity to ask questions regarding the treatment plan. All questions were answered. Physical exam, labs, and imaging were discussed and reviewed in detail. As well as risks, benefits, and discussion of treatment choices. No major barriers to understanding were identified. The patient expressed understanding and agreement with the above treatment plan. The patient was made aware they should contact our office by phone for worsening of their current condition, the appearance of new symptoms, or with any questions or concerns. Compliance is encouraged with any medications and follow up testing that is ordered. It is a privilege to be allowed the opportunity to participate in? your urological care.? Again, if you have any questions or concerns If you have any questions or concerns please do not hesitate to contact me. The office is [phone]. This note is constructed using voice recognition software. While every effort has been made to ensure accuracy performance improvement manager errors may have been included. Yours sincerely, GISEL Jenkins-CARLOS Coding Level of Care Code Est Pt Level 4 (69831) Complex EM visit Add On G2211 Diagnoses Microhematuria R31.29 Renal cyst N28.1 Complicated urinary tract infection N39.0
== END 2025-07-03 12:17 | disposition home or self-care (01) ==
PROVIDERS: PCP Internal Medicine; Visit Provider Nurse Practitioner Family
DX: R31.29 Other microscopic hematuria (principal); N28.1 Cyst of kidney, acquired; N39.0 Urinary tract infection, site not specified; Z13.9 Encounter for screening, unspecified
CPT/HCPCS: 99214; G2211

== ENCOUNTER 2025-08-09 14:11 | Outpatient (REF) | payer OTHER, SELFPAY ==
[2025-08-09 14:50] LABS: Appearance Urine Clear; Glucose Urine UA Negative (Negative); PH 5.5 (5.0-9.0); Specific Gravity - Urine 1.020 (1.005-1.025); UMIC TRIGGER UACC YES
[2025-08-09 15:08] LABS: UACC Culture Trigger YES
== END 2025-08-09 14:12 | disposition home or self-care (01) ==
LOC: HO.LAB 14:11
PROVIDERS: PCP Internal Medicine; Visit Provider Nurse Practitioner Family
DX: R35.0 Frequency of micturition (principal)
CPT/HCPCS: 81001; 87086; 87088; 87186

== ENCOUNTER 2025-08-23 13:38 | Outpatient (REF) | payer OTHER, SELFPAY ==
--- NOTE | ~2025-08-23 | US_ITS ---
EXAMINATION: US KIDNEY BILATERAL HISTORY: N28.1 - Cyst of kidney, acquired TECHNIQUE: Real-time grayscale ultrasound imaging of the kidneys was performed and images were reviewed. COMPARISON: Correlation is made with a CT of the abdomen dated 03/01/2024 and MRI of the abdomen dated 03/12/2023. FINDINGS: Right kidney: The right kidney measures 11.0 x 5.6 x 4.3 cm. Renal parenchymal echotexture and thickness are normal. There are no masses. There is no hydronephrosis or renal calculi. Left Kidney: The left kidney measures 10.4 x 5.4 x 4.6 cm. Renal parenchymal echotexture and thickness are normal. There is a 6 x 7 x 11 mm cyst in the interpolar region. There is a hyperechoic solid mass at the lower pole measuring 2.2 x 1.9 x 1.7 cm. This is larger than on prior studies where it measured up to 1.7 cm. There is no hydronephrosis or renal calculi. 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 Findings were sent to Jerri Kim NP by secure text message on 08/23/2025 at 2:55 PM. Electronically signed by: Dima Pat MD 08/23/2025 02:56 PM [facility]
--- OUTSIDE RECORDS SUMMARY | 2025-08-23 16:32 | XMS_ITS | Continuity of Care Document ---
Author Organization [facility] - [facility], [facility] Address [address] [place] [address] Care Team Providers Care Coremaking Machine Operator Name Role Phone BARNEY JAIMES Primary Care Provider Assessment Encounter Date Assessment Date Assessment LastModified by Organization Details LastModified Time 08/22/2025 08/22/2025 60-year-old female [id number] d female presents for evaluation of jaw pain that has been present for the last month. On examination she has mild tenderness and crepitus of the bilateral TMJ. Both TMs are intact with well aerated middle ear spaces and she does not have any trismus. 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 [email or web address] Not available 08/22/2025 13:41:01 Plan of Treatment Reminders Order Date Submit Date Provider Last Modified By Organization Details Last Modified Time Details Appointments None record ed. Lab None record ed. Referral None record ed. Procedures None record ed. Surgeries None record ed. Imaging None record ed. Medication Orders None record ed. Patient TargetsNo targets recorded. Patient InstructionsNo instructions recorded. Reason for Referral None Reported. 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 Benign neoplasm of a major salivary gland; Note: Date Diagnose d: 5 2:41 PM (210.2) ; Start Date : 06/08/20 15 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; Note: Date Diagnose d: 07/31/20 15 1:20 PM (Z09) Not Available [facility] 4 03:16:47 Neuralgi a 25366616 Active 2017 Neuralgi a and neuritis , unspecif ied; Note: Date Diagnose d: 8 3:10 PM (M79.2) Not Available [facility] 4 03:16:46 Inflamma tory neuropat hy 01676752 Active 2017 Neuralgi a and neuritis , unspecif ied; Note: Date Diagnose d: 8 3:10 PM (M79.2) Not Available [facility] 4 03:16:46 Pain of right temporom andibula r joint 58495291693 111944 Active 2022 Arthralg ia of right temporom andibula r joint; Note: Date Diagnose d: 3 1:43 PM (M26.621 ) Not Available [facility] 4 03:16:47 Acute upper respirat ory infectio n 97452519 Active 2022 Acute upper respirat ory infectio n, unspecif ied; Note: Date Diagnose d: 3 1:43 PM (J06.9) Not Available [facility] 4 03:16:47 Acute serous otitis media of bilatera l ears 24760873692 73230 Completed 202205/20/2024 Acute serous otitis media, bilatera l; Note: Date Diagnose d: 3 1:43 PM (H65.03) Not Available [facility] 4 03:16:47 Bilatera l referred otalgia of ears 43515494136 70266 Active 2024 STACEY COELLO [address] [place] [address], [place], [address] , [facility] - [facility] 13:16:56 Problem Notes None recorded. Medical Equipment None Reported. Allergies No known drug allergies Medications Name Sig Start Date Stop Date Status Note LastModified by Organization Details LastModified Time Vitamin C 500 mg tablet 08/22 completed Medicati on ID: [id number] B rand Name: Vitamin C Send Method: E-Prescr ibed Sub s Allowed: subs OK Medic ationGen ericName : Vitamin C Not Available Not Available Not Available famotidin e 20 mg tablet TAKE 1 TABLET BY MOUTH TWICE DAILY active Not Available Not Available No t Available estradiol 0.01% (0.1 mg/gram) vaginal cream APPLY PEA-SIZE D AMOUNT TO URETHRA DAILY FOR ONE MONTH AND THEN 3 TIMES PER WEEK THEREAFT ER. 08/22 completed Not Available Not Available Not Available Vitamin D2 1,250 mcg (50,000 unit) capsule 11/07 completed Medicati on ID: [id number] Du ration Value: 28 Brand Name: Vitamin D2 Send Method: E-Prescr ibed Sub s Allowed: subs OK Medic ationGen ericName : Vitamin D2 Not Available Not Available Not Available cyclobenz aprine 5 mg tablet TAKE 1 TABLET BY MOUTH DAILY AT BEDTIME NEEDED FOR LOWER BACK PAIN. DO NOT DRIVE AFTER TAKING THIS MEDICATI ON 08/22 completed Not Available Not Available Not Available nitrofura ntoin monohydra te/macroc rystals 100 mg capsule TAKE 1 CAPSULE BY MOUTH TWICE DAILY FOR 5 DAYS 08/22 completed Not Available Not Available Not Available Ranitidin e Hcl 11/07 completed Medicati on ID: [id number] D uration Value: 30 Brand Name: ranitidi ne hcl Send Method: E-Prescr ibed Sub s Allowed: subs OK Medic ationGen ericName : ranitidi ne hcl Not Available Not Available Not Available Vitamin D3 125 mcg (5,000 unit) tablet active Medicati on ID: [id number] B rand Name: Vitamin D3 Send Method: E-Prescr ibed Sub s Allowed: subs OK Medic ationGen ericName : Vitamin D3 Not Available Not Available Not Available Stimulant Laxative Plus 8.6 mg-50 mg tablet TAKE 2 TABLETS BY MOUTH EVERY DAY IN AFTERNOO N NEEDED FOR CONSITPA TION DIRECTED 08/22 completed Not Available Not Available Not Available Vitals Date Recorded Body height Body mass index (BMI) Body weight Provider Name and Address Organization Details Last Updated DateTime 08/22/2025 154.94 cm 26.8 kg/m2 28362.12 g Anahy Zimmer [place] - [facility] 08/22/2025 12:50:25 Social History None recorded. Functional Status None recorded. Mental Status None recorded. Family History Nothing Reported. Medical History No medical history recorded. Gynecological HistoryNo gynecological history recorded. Obstetrics History GPAL:G 0 P 0 0 0 0 Past Encounters Encounter ID Performer Location Encounter Start Date Encounter Closed Date Diagnosis/Indication Diagnosis SNOMED-CT Code Diagnosis ICD10 Code Diagnosis IMO Codes Diagnosis Note [id number] STACEY COELLO [facility] of [address] [address] 08/22/2025 12:43:56 08/22/2025 13:20:36 Bilateral referred otalgia of ears [id number] 421494 H92.03 M26.623 M79.11 The patient complains of intermitte nt right-side d periauricu lar discomfort . Physical exam reveals no identifiab le source of these symptoms involving the auricle, external auditory canal, or tympanic membrane. Furthermor e, examinatio n was positive for crepitus and tenderness of the bilateral jaw joint and qing-TMJ musculatur e. The patient's periauricu lar discomfort is most likely consistent with intermitte nt inflammati on of the jaw joint or spasm of the surroundin g musculatur e. This is likely exacerbate d by dental clenching and grinding and uneven chewing. I recommende d the patient use light massage, warm compresses and anti-infla mmatories for symptomati c management . Stressed chewing evenly on both sides of the mouth to keep from overworkin g the jaw joint. Use soft food diet as needed. Jaw Joint Program informatio n sheet was shared. If this treatment plan is ineffectiv e, recommend follow up with their dentist. The patient is leaving the country for 2 months and will return in October. She will reach out when she returns if she would like to pursue physical therapy for TMJ dysfunctio n. Health Concerns Section Related Observation LastModified by Organization Detai ls LastModified Time None Recorded Concern Status LastModified by Organization Details LastModified Time None Recorded Payers Encounter Date Sequence Insurance Name Policy Number Policy Erwin Covered Member ID Erwin Member ID Guarantor Name 08/22/[address] [place] [address] [id number] Chyna Duggan [id number] Chyna Duggan Notes Date Note Type Note Provider Name and Address Organization Details Recorded Time 08/22/2025 text/html ROS as noted in the HPI 60-year-old female presents for evaluation of jaw pain that has been present for the last month. When she was chewing food she heard a strange sound in her jaw and started having right jaw pain. The pain radiates up in front of the right ear. She does grind her teeth but has not used a mouthguard. She saw her dentist yesterday who recommended 800 mg of ibuprofen 3 times daily to reduce jaw inflammation. She took 800 mg of ibuprofen twice yesterday, which has helped her pain. The dentist also recommended wearing a mouthguard. She chews more on the right side of her mouth and will sometimes have the sensation that her jaw gets stuck, resulting in difficulty opening the mouth. She denies ear pain, hearing changes, ear drainage, or tinnitus. HALLE ARCHULETA MD [address] [place] [address], [phone] [place] - [facility] 08/23/2025 10:56:58 OBGyn Episode No OBEpisode recorded.
--- OUTSIDE RECORDS SUMMARY | 2025-08-23 16:32 | XMS_ITS | Data Portability ---
Author Organization [facility] - [facility], Allergy Address [address] [address] Care Team Providers Care [employer] Librarian Name Role Phone BARNEY JAIMES Primary Care Provider Assessment Encounter Date Assessment Date Assessment LastModified by Organization Details LastModified Time 08/22/2025 08/22/2025 60-year-old female lulb40-[id number] d female presents for evaluation of jaw pain that has been present for the last month. On examination she has mild tenderness and crepitus of the bilateral TMJ. Both TMs are intact with well aerated middle ear spaces and she does not have any trismus. 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; Note: Date Diagnose d: 07/31/20 15 1:20 PM (Z09) Not Available [facility] 4 03:16:47 Neuralgi a 46842111 Active 2017 Neuralgi a and neuritis , unspecif ied; Note: Date Diagnose d: 8 3:10 PM (M79.2) Not Available [facility] 4 03:16:46 Inflamma tory neuropat hy 13493976 Active 2017 Neuralgi a and neuritis , unspecif ied; Note: Date Diagnose d: 8 3:10 PM (M79.2) Not Available [facility] 4 03:16:46 Pain of right temporom andibula r joint 65176073345 644970 Active 2022 Arthralg ia of right temporom andibula r joint; Note: Date Diagnose d: 3 1:43 PM (M26.621 ) Not Available [facility] 4 03:16:47 Acute upper respirat ory infectio n 90654572 Active 2022 Acute upper respirat ory infectio n, unspecif ied; Note: Date Diagnose d: 3 1:43 PM (J06.9) Not Available [facility] 4 03:16:47 Acute serous otitis media of bilatera l ears 94663397939 28238 Completed 202205/20/2024 Acute serous otitis media, bilatera l; Note: Date Diagnose d: 3 1:43 PM (H65.03) Not Available [facility] 4 03:16:47 Bilatera l referred otalgia of ears 63975057360 87551 Active 2024 STACEY COELLO [address] [place] [address], [facility] [place], [address] , [facility] - [facility] 13:16:56 Problem Notes None recorded. Medical Equipment None Reported. Allergies No known drug allergies Medications Name Sig Start Date Stop Date Status Note LastModified by Organization Details LastModified Time Vitamin C 500 mg tablet 08/22 completed Medicati on ID: [id number] B rand Name: Vitamin C Send Method: [...] unit) capsule 11/07 completed Medicati on ID: [id number] Du ration Value: 28 Brand Name: Vitamin [...] e Hcl 11/07 completed Medicati on ID: [id number] D uration Value: 30 Brand Name: ranitidi ne hcl Send Method: E-Prescr ibed Sub s Allowed: subs OK Medic ationGen ericName : ranitidi ne hcl Not Available Not Available Not Available Vitamin D3 125 mcg (5,000 unit) tablet active Medicati on ID: [id number] B rand Name: Vitamin D3 Send Method: [...] Updated DateTime 08/22/2025 154.94 cm 26.8 kg/m2 55694.12 g Anahy Zimmer [place] - [facility] 08/22/2025 12:50:25 Social History None recorded. Functional Status None recorded. Mental Status None recorded. Family History Nothing Reported. Medical History No medical history recorded. Gynecological HistoryNo gynecological history recorded. Obstetrics History GPAL:G 0 P 0 0 0 0 Past Encounters Encounter ID Performer Location Encounter Start Date Encounter Closed Date Diagnosis/Indication Diagnosis SNOMED-CT Code Diagnosis ICD10 Code Diagnosis IMO Codes Diagnosis Note [id number] STACEY COELLO [facility] of [address] [address] 08/22/2025 12:43:56 08/22/2025 13:20:36 Bilateral referred otalgia of ears [id number] 966521 H92.03 M26.623 M79.11 The patient complains of [...] by Organization Details LastModified Time None Recorded Advance Directives Directive None Recorded Payers Insurance Date Sequence Insurance Name Policy Number Policy Erwin Covered Member ID Erwin Member ID Guarantor Name 08/22/2025 1 [facility] [id number] 05 Chyna Duggan [id number] Chyna Duggan Notes Date Note Type Note [...] ear drainage, or tinnitus. HALLE ARCHULETA MD [address] [place] [address], [phone] [place] - [facility] 08/23/2025 10:56:58 OBGyn Episode No OBEpisode recorded.
== END 2025-08-23 13:39 | disposition home or self-care (01) ==
LOC: HO.US 13:38
PROVIDERS: PCP Internal Medicine; Visit Provider Nurse Practitioner Family
DX: N28.1 Cyst of kidney, acquired (principal); R31.29 Other microscopic hematuria; N39.0 Urinary tract infection, site not specified
CPT/HCPCS: 76775

== ENCOUNTER → 2025-08-23 13:40 | Outpatient (BNV) | payer OTHER, SELFPAY | PROVIDERS: PCP Internal Medicine; Visit Provider Radiology Diagnostic Radiology | DX: N28.1 Cyst of kidney, acquired (principal) | CPT/HCPCS: 76775 ==

== ENCOUNTER 2025-08-24 10:07 | Outpatient (REF) | payer OTHER, SELFPAY ==
--- NOTE | ~2025-08-24 | US_ITS ---
CLINICAL HISTORY: UTI site unspecified US Urinary Bladder Comparison: US/SR - US KIDNEY BILATERAL - 08/23/25 14:08 EST US/SR - US RETROPERITONEUM - 03/20/23 10:10 EDT Findings: Prevoid urinary bladder volume is 469 mL. Postvoid urinary bladder volume is 43 mL. Bilateral ureteral jets are visualized. IMPRESSION: Normal urinary bladder This document has been electronically signed by: Bradly Calderon DO on 08/25/2025 10:44:31
== END 2025-08-24 10:08 | disposition home or self-care (01) ==
LOC: HO.US 10:07
PROVIDERS: PCP Internal Medicine; Visit Provider Nurse Practitioner Family
DX: N28.1 Cyst of kidney, acquired (principal); R31.29 Other microscopic hematuria; N39.0 Urinary tract infection, site not specified
CPT/HCPCS: 76857

== ENCOUNTER → 2025-08-24 10:14 | Outpatient (BNV) | payer OTHER, SELFPAY | PROVIDERS: PCP Internal Medicine; Visit Provider Family Medicine | DX: N39.0 Urinary tract infection, site not specified (principal) | CPT/HCPCS: 76857 ==

== ENCOUNTER → 2025-09-20 09:03 | Outpatient (BNV) | payer OTHER, SELFPAY | PROVIDERS: PCP Internal Medicine; Visit Provider Radiology Body Imaging | DX: N28.89 Other specified disorders of kidney and ureter (principal) | CPT/HCPCS: 74183 ==

== ENCOUNTER 2025-09-20 09:07 | Outpatient (REF) | payer OTHER, SELFPAY ==
--- NOTE | ~2025-09-20 | MR_ITS ---
EXAMINATION: MR ABDOMEN WITHOUT THEN WITH IV CONTRAST CLINICAL INFORMATION: N28.89 - Other specified disorders of kidney and ureter , mass Renal ultrasound on August 23, 2025 describes interval enlargement of the patient's known solid mass at the lower pole of the left kidney measuring 2.2 x 1.9 x 1.7 cm. COMPARISON: Ultrasound of the bilateral kidneys on August 23, 2025. Abdomen/pelvis CT on March 01, 2024. MR of the abdomen on March 12, 2023. TECHNIQUE: MR abdomen was performed without and with use of 6.5 ml intravenous gadolinium contrast Gadavist. Postcontrast images are performed in multiphase dynamic sequences. Imaging was performed in 3 planes. FINDINGS: LOWER CHEST: No pleural effusions. No consolidation in the lung bases. LIVER: No focal lesions GALLBLADDER/BILIARY: Normal gallbladder. No biliary ductal dilatation. SPLEEN: No splenomegaly. No focal lesions. PANCREAS: No focal lesion. No ductal dilatation. ADRENAL GLANDS: No nodules. KIDNEYS AND URETERS: Right: No focal renal lesion or hydronephrosis. Left: Known exophytic enhancing solid mass in the lower pole measures 1.8 x 1.5 x 1.6 cm (19:56/72, 18:27/64). There are some internal areas that show loss of signal on the jxq-eh-ehbur sequence compared to the in-phase sequence, which suggests fatty component. Re-measurements at similar level on MR in February 2023 are 1.4 x 1.3 x 1.4 cm and on MR in September 2018 are 1.1 x 1.1 x 1.1 cm. No new focal renal lesions. No hydronephrosis. GASTROINTESTINAL TRACT: No bowel distention. PERITONEUM/RETROPERITONEUM: No free fluid. LYMPH NODES: No lymphadenopathy. VASCULAR: No abdominal aortic aneurysm. BONES/SOFT TISSUES: Marrow appears normal. Overlying soft tissues are unremarkable. MR/MR abdomen wo/w con IMPRESSION: 1. Enlarging known exophytic solid mass of the lower pole of the left kidney, now measuring 1.8 x 1.5 x 1.6 cm. Prior re-measurements of up to 1.4 cm in 2022 and up to 1.1 cm in 2017. 2. No new enhancing renal lesions identified. Electronically signed by: Katelynn Burk MD 09/20/2025 11:35 AM EST
--- OUTSIDE RECORDS SUMMARY | 2025-09-20 09:46 | XMS_ITS | Data Portability ---
Author Organization [place] - [facility], Allergy Address [address] [place] [address] Care Team Providers Care Cementing Machine Operator Name Role Phone BARNEY JAIMES Primary Care Provider [phone] Assessment Encounter Date Assessment Date Assessment LastModified by Organization Details LastModified Time 08/22/2025 08/22/2025 60-year-old female cbnp31-[id number]-hw d female presents for evaluation of jaw pain that has been present for the last month. On examination she has mild tenderness and crepitus of the bilateral TMJ. Both TMs are intact with well aerated middle ear spaces and she does not have any trismus. 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; Note: Date Diagnose d: 07/31/20 15 1:20 PM (Z09) Not Available [facility] 4 03:16:47 Neuralgi a 20057807 Active 2017 Neuralgi a and neuritis , unspecif ied; Note: Date Diagnose d: 8 3:10 PM (M79.2) Not Available [facility] 4 03:16:46 Inflamma tory neuropat hy 29291442 Active 2017 Neuralgi a and neuritis , unspecif ied; Note: Date Diagnose d: 8 3:10 PM (M79.2) Not Available [facility] 4 03:16:46 Pain of right temporom andibula r joint 37359553991 593782 Active 2022 Arthralg ia of right temporom andibula r joint; Note: Date Diagnose d: 3 1:43 PM (M26.621 ) Not Available [facility] 4 03:16:47 Acute upper respirat ory infectio n 19365703 Active 2022 Acute upper respirat ory infectio n, unspecif ied; Note: Date Diagnose d: 3 1:43 PM (J06.9) Not Available [facility] 4 03:16:47 Acute serous otitis media of bilatera l ears 19837197545 95157 Completed 202205/20/2024 Acute serous otitis media, bilatera l; Note: Date Diagnose d: 3 1:43 PM (H65.03) Not Available [facility] 4 03:16:47 Bilatera l referred otalgia of ears 30833394624 10168 Active 2024 STACEY COELLO [address] [place] [address],[facility] [address], [place], [address] , [facility] - [facility] 13:16:56 Problem Notes None recorded. Medical Equipment None Reported. Allergies No known drug allergies Medications Name Sig Start Date Stop Date Status Note LastModified by Organization Details LastModified Time Vitamin C 500 mg tablet 08/22 completed Medicati on ID: [id number] B rand Name: Vitamin C Send Method: [...] unit) capsule 11/07 completed Medicati on ID: [id number] Du ration Value: 28 Brand Name: Vitamin [...] e Hcl 11/07 completed Medicati on ID: [id number] D uration Value: 30 Brand Name: ranitidi ne hcl Send Method: E-Prescr ibed Sub s Allowed: subs OK Medic ationGen ericName : ranitidi ne hcl Not Available Not Available Not Available Vitamin D3 125 mcg (5,000 unit) tablet active Medicati on ID: [id number] B rand Name: Vitamin D3 Send Method: [...] Updated DateTime 08/22/2025 154.94 cm 26.8 kg/m2 62634.12 g Anahy Zimmer [place] - [facility] 08/22/2025 12:50:25 Social History None [...] ICD10 Code Diagnosis IMO Codes Diagnosis Note [id number] STACEY COELLO [facility] of [address] [address] 08/22/2025 12:43:56 08/22/2025 13:20:36 Bilateral referred otalgia of ears [id number] 038508 H92.03 M26.623 M79.11 The patient complains of [...] Member ID Erwin Member ID Guarantor Name 08/24/2025 1 [facility] [id number] 05 Chyna Duggan [id number] Chyna Duggan 08/24/2025 1 [facility] [employer] (MEDICAID HMO) [id number] 05 Chyna Duggan [id number] Chyna Duggan Notes Date Note Type Note [...] ear drainage, or tinnitus. HALLE ARCHULETA MD [address] [place] [address], [phone], [place] - [facility] 08/23/2025 10:56:58 OBGyn Episode No OBEpisode recorded.
== END 2025-09-20 09:08 | disposition home or self-care (01) ==
LOC: HO.MRI 09:07
PROVIDERS: PCP Internal Medicine; Visit Provider Nurse Practitioner Family
DX: N28.89 Other specified disorders of kidney and ureter (principal)
CPT/HCPCS: 74183; A9585

== ENCOUNTER 2025-10-04 15:20 | Outpatient (AMB) | payer OTHER, SELFPAY ==
--- NOTE | 2025-10-04 15:20 | A.OFFVIS_ITS ---
Intake Visit Reasons: 3m/US(SET) Intake Note: Patient is present for /US Urology Medication:NONE Antibiotic Allergy:NONE Blood Thinner:NONE Cash Person Required: No Allergies No Known Allergies Allergy (Verified 10/04/25 20:41) Medication List - Last Reconciled 10/04/25 by DARRYL Jenkins cholecalciferol (vitamin D3) 125 mcg PO DAILY HPI Comments Details: Chyna is a pleasant 60-year-old female patient of . She has a past medical history of vitamin-D deficiency, obstructive sleep apnea, kidney mass, internal hemorrhoids, hiatal hernia with GERD, depression, and ROB II. She presents to the office today for a follow up of her renal cyst/renal mass. In discussion with the patient today she reports to be doing and feeling well. She denies having had any bothersome urinary issues or concerns. Recent MRI renal mass protocol results reviewed with the patient today 10/12 enlarging known exophytic solid mass of the lower pole of the left kidney, now measuring 1.8 x 1.5 x 1.6 cm. Prior measurements of 1.4 cm in 2022 and 1.1 cm in 2017. No new enhancing renal lesions identified per radiology report. She denies having had any bothersome lower urinary tract symptoms. We did discuss further treatment options to include prostate biopsy verses surveillance monitoring. Risks and benefits of these interventions were discussed. She denies urinary urgency, urinary frequency, incontinence, nocturia, hematuria, dysuria, foul smelling urine, changes to urinary stream, flank pain, fever, and or chills. She is happy with her current voiding parameters. She reports she is currently in [place] taking care of her son who has multiple medical issues. Previous workup for renal cyst is as follows: Previous workup has included MRI 03/10-- showing interval increase in size in the solid mass exopphytic to the lower pole of the left kidney now measuring 1.3 x 1.7 x 1.6 cm. Mild fatty infiltration of the liver. In review of patient's chart it appears when patient was following with Dr. Teixeira left lower pole exophytic renal mass measured approximately 1.9 cm. She has had a prior negative renal biopsy in 2019. Retroperitoneal ultrasound 04/10 results noted right kidney with no calculi, lesions, and or hydronephrosis noted. Left kidney with no calculi or lesions noted. The bladder is well distended and normal. Pre void bladder volume is approximately 315 mL. Postvoid bladder volume is 10 mL. Previous urine cytologies are as follows 02/08, 05/10, 07/13 Negative for high- grade urothelial carcinoma. 03/11 CT urogram noted bilateral kidneys are normal in size, shape, and attenuation. No hydronephrosis, hydroureter, or calculi seen bilaterally. No perinephric stranding. The bladder is unremarkable. All questions were answered. She otherwise denies any issues or concerns at this time. [facility] Medical History Vitamin D deficiency Pseudocholinesterase deficiency Polyp of sigmoid colon Pain in right shoulder LACHO (obstructive sleep apnea) Class 1 obesity LGSIL Pap smear of vagina Kidney mass Internal hemorrhoids Hiatal hernia with gastroesophageal reflux Family history of glaucoma in father Family history of colon cancer Dysphagia Diverticulosis of colon Depression, major ROB II (cervical intraepithelial neoplasia II) Surgical History History of colonoscopy Review of Systems Const Reports no additional complaints Eyes Reports no additional complaints ENT Reports no additional complaints Card Reports no additional complaints Resp Reports as per HPI GI Reports as per HPI Reports as per HPI Musc Reports no additional complaints Neuro Reports no additional complaints Psych Reports as per HPI Endo Reports no additional complaints Taj/Lymph Reports no additional complaints Aller/Immun Reports no additional complaints Physical Exam Const General: cooperative, healthy appearing, comfortable, no acute distress, well developed, alert and awake Orientation/consciousness: patient oriented x3 Resp Effort & Inspection: normal respiratory effort and able to speak in complete sentences Neuro General: patient oriented x3 Psych Appearance: well kempt Speech and movement: Clear speech present Affect: normal affect Attitude: cooperative Thought process: Normal thought process present Thought content: Normal thought content present Insight: Fair insight present (Psych) Judgement: Fair judgement present (Psych) Telehealth Telehealth Telehealth Platform: Telephone Location of provider rendering services: practice address Location of patient: address on file Patient Identification confirmed using: Name, : Yes Telehealth method: video Patient verbally consented to treatment: Yes Patient verbally consented to billing insurance company: Yes Patient informed of any privacy concerns related to visit: Yes Minutes spent on Phone/Video with Pt.: 20 Results Reviewed Results Reviewed: Date of Service: 09/20/25 Procedure(s): MR abdomen wo/w con FINDINGS: LOWER CHEST: No pleural effusions. No consolidation in the lung bases. LIVER: No focal lesions GALLBLADDER/BILIARY: Normal gallbladder. No biliary ductal dilatation. SPLEEN: No splenomegaly. No focal lesions. PANCREAS: No focal lesion. No ductal dilatation. ADRENAL GLANDS: No nodules. KIDNEYS AND URETERS: Right: No focal renal lesion or hydronephrosis. Left: Known exophytic enhancing solid mass in the lower pole measures 1.8 x 1.5 x 1.6 cm (19:56/72, 18:27/64). There are some internal areas that show loss of signal on the iir-md-nxljp sequence compared to the in-phase sequence, which suggests fatty component. Re-measurements at similar level on MR in February 2023 are 1.4 x 1.3 x 1.4 cm and on MR in September 2018 are 1.1 x 1.1 x 1.1 cm. No new focal renal lesions. No hydronephrosis. GASTROINTESTINAL TRACT: No bowel distention. PERITONEUM/RETROPERITONEUM: No free fluid. LYMPH NODES: No lymphadenopathy. VASCULAR: No abdominal aortic aneurysm. BONES/SOFT TISSUES: Marrow appears normal. Overlying soft tissues are unremarkable. IMPRESSION: 1. Enlarging known exophytic solid mass of the lower pole of the left kidney, now measuring 1.8 x 1.5 x 1.6 cm. Prior re-measurements of up to 1.4 cm in 2022 and up to 1.1 cm in 2017. 2. No new enhancing renal lesions identified. Assessment & Plan Assessment & Plan (1) Kidney mass: Code(s): N28.89 - Other specified disorders of kidney and ureter Category: Medical (2) Renal cyst: Code(s): N28.1 - Cyst of kidney, acquired Category: Medical Plan Most recent renal MRI results reviewed with the patient today; as noted above We did discussed further treatment options and risks and benefits of these treatment options. All questions were answered. She currently denies any bothersome urinary issues or concerns. She reports be happy with current voiding parameters. Will continue with surveillance monitoring at this time. Will obtain renal ultrasound in 6 months. Follow-up in 6 months with imaging; or sooner with any issues, concerns, and or questions. Orders: Orders US renal BI 6 Months N28.1 - Cyst of kidney, acquired, N28.89 - Other specified disorders of kidney and ureter Medications: Discontinued nitrofurantoin monohyd/m-cryst 100 mg (Macrobid) must administer with a meal/food Discontinued Reason: Doctor's Order 100 mg PO BID 7 days 14 caps 0RF Patient Instructions: The patient had an opportunity to ask questions regarding the treatment plan. All questions were answered. Physical exam, labs, and imaging were discussed and reviewed in detail. As well as risks, benefits, and discussion of treatment choices. No major barriers to understanding were identified. The patient expressed understanding and agreement with the above treatment plan. The patient was made aware they should contact our office by phone for worsening of their current condition, the appearance of new symptoms, or with any questions or concerns. Compliance is encouraged with any medications and follow up testing that is ordered. It is a privilege to be allowed the opportunity to participate in? your urological care.? Again, if you have any questions or concerns If you have any questions or concerns please do not hesitate to contact me. The office is [phone]. This note is constructed using voice recognition software. While every effort has been made to ensure accuracy behavioral geneticist errors may have been included. Yours sincerely, DARRYL Jenkins Coding Level of Care Code Tele Est Pt Level 3 (24404) Add On Problem Visit Only Diagnoses Kidney mass N28.89 Renal cyst N28.1
--- OUTSIDE RECORDS SUMMARY | 2025-10-04 20:21 | XMS_ITS | Data Portability ---
Author Organization [place] - [facility], Allergy Address [address] [place] [address] Care Team Providers Care Operating Cost Clerk Name Role Phone BARNEY JAIMES Primary Care Provider Assessment Encounter Date Assessment Date Assessment LastModified by Organization Details LastModified Time 08/22/2025 08/22/2025 60-year-old female [id number] d female presents for evaluation of jaw pain that has been present for the last month. On examination she has mild tenderness and crepitus of the bilateral TMJ. Both TMs are intact with well aerated middle ear spaces and she does not have any trismus. 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; Note: Date Diagnose d: 07/31/20 15 1:20 PM (Z09) Not Available [facility] 4 03:16:47 Neuralgi a 87422503 Active 2017 Neuralgi a and neuritis , unspecif ied; Note: Date Diagnose d: 8 3:10 PM (M79.2) Not Available [facility] 4 03:16:46 Inflamma tory neuropat hy 33985241 Active 2017 Neuralgi a and neuritis , unspecif ied; Note: Date Diagnose d: 8 3:10 PM (M79.2) Not Available [facility] 4 03:16:46 Pain of right temporom andibula r joint 82119833575 042973 Active 2022 Arthralg ia of right temporom andibula r joint; Note: Date Diagnose d: 3 1:43 PM (M26.621 ) Not Available [facility] 4 03:16:47 Acute upper respirat ory infectio n 88474690 Active 2022 Acute upper respirat ory infectio n, unspecif ied; Note: Date Diagnose d: 3 1:43 PM (J06.9) Not Available [facility] 4 03:16:47 Acute serous otitis media of bilatera l ears 53573981579 62257 Completed 202205/20/2024 Acute serous otitis media, bilatera l; Note: Date Diagnose d: 3 1:43 PM (H65.03) Not Available [facility] 4 03:16:47 Bilatera l referred otalgia of ears 86082122333 66983 Active 2024 STACEY COELLO [address] [place] [address],[facility], [place], [address] , [facility] - [facility] 13:16:56 Problem Notes None recorded. Medical Equipment None Reported. Allergies No known drug allergies Medications Name Sig Start Date Stop Date Status Note LastModified by Organization Details LastModified Time Vitamin C 500 mg tablet 08/22 completed Medicati on ID: [id number] B rand Name: Vitamin C Send Method: [...] unit) capsule 11/07 completed Medicati on ID: [id number] Du ration Value: 28 Brand Name: Vitamin [...] e Hcl 11/07 completed Medicati on ID: [id number] D uration Value: 30 Brand Name: ranitidi ne hcl Send Method: E-Prescr ibed Sub s Allowed: subs [place] Medic ationGen ericName : ranitidi ne hcl Not Available Not Available Not Available Vitamin D3 125 mcg (5,000 unit) tablet active Medicati on ID: [id number] B rand Name: Vitamin D3 Send Method: [...] Updated DateTime 08/22/2025 154.94 cm 26.8 kg/m2 96982.12 g Anahy Zimmer [place] - [facility] 08/22/2025 12:50:25 Social History None [...] ICD10 Code Diagnosis IMO Codes Diagnosis Note [id number] STACEY COELLO [facility] of [address] [address] 08/22/2025 12:43:56 08/22/2025 13:20:36 Bilateral referred otalgia of ears [id number] 071775 H92.03 M26.623 M79.11 The patient complains of [...] Erwin Member ID Guarantor Name 08/24/2025 1 [facility] [id number] Chyna Duggan [id number] Chyna Duggan 08/24/2025 1 [facility] - [facility] (MEDICAID HMO) [id number] Chyna Duggan [id number] Chyna Duggan Notes Date Note Type Note [...] ear drainage, or tinnitus. HALLE ARCHULETA MD [address] [place] [address], [phone], [place] - [facility] 08/23/2025 10:56:58 OBGyn Episode No OBEpisode recorded.
--- OUTSIDE RECORDS SUMMARY | 2025-10-04 20:21 | XMS_ITS | Continuity of Care Document ---
Author Organization [place] - [facility], [facility] Address [address] [place] [address] Care Team Providers Care Vessel Scrapper Name Role Phone BARNEY JAIMES Primary Care Provider [phone] Assessment Encounter Date Assessment Date Assessment LastModified by Organization Details LastModified Time 08/22/2025 08/22/2025 60-year-old female [id number]-lq d female presents for evaluation of jaw pain that has been present for the last month. On examination she has mild tenderness and crepitus of the bilateral TMJ. Both TMs are intact with well aerated middle ear spaces and she does not have any trismus. 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; Note: Date Diagnose d: 07/31/20 15 1:20 PM (Z09) Not Available [facility] 4 03:16:47 Neuralgi a 99417623 Active 2017 Neuralgi a and neuritis , unspecif ied; Note: Date Diagnose d: 8 3:10 PM (M79.2) Not Available [facility] 4 03:16:46 Inflamma tory neuropat hy 48729545 Active 2017 Neuralgi a and neuritis , unspecif ied; Note: Date Diagnose d: 8 3:10 PM (M79.2) Not Available [facility] 4 03:16:46 Pain of right temporom andibula r joint 56315292631 064215 Active 2022 Arthralg ia of right temporom andibula r joint; Note: Date Diagnose d: 3 1:43 PM (M26.621 ) Not Available [facility] 4 03:16:47 Acute upper respirat ory infectio n 35429442 Active 2022 Acute upper respirat ory infectio n, unspecif ied; Note: Date Diagnose d: 3 1:43 PM (J06.9) Not Available [facility] 4 03:16:47 Acute serous otitis media of bilatera l ears 09528369045 63050 Completed 202205/20/2024 Acute serous otitis media, bilatera l; Note: Date Diagnose d: 3 1:43 PM (H65.03) Not Available [facility] 4 03:16:47 Bilatera l referred otalgia of ears 15599442897 49155 Active 2024 STACEY COELLO [address] [place] [address], [facility] [place], [address] , [facility] - [facility] 13:16:56 Problem Notes None recorded. Medical Equipment None Reported. Allergies No known drug allergies Medications Name Sig Start Date Stop Date Status Note LastModified by Organization Details LastModified Time Vitamin C 500 mg tablet 08/22 completed Medicati on ID: [id number] B rand Name: Vitamin C Send Method: [...] unit) capsule 11/07 completed Medicati on ID: [id number] Du ration Value: 28 Brand Name: Vitamin [...] e Hcl 11/07 completed Medicati on ID: [id number] D uration Value: 30 Brand Name: ranitidi ne hcl Send Method: E-Prescr ibed Sub s Allowed: subs [place] Medic ationGen ericName : ranitidi ne hcl Not Available Not Available Not Available Vitamin D3 125 mcg (5,000 unit) tablet active Medicati on ID: [id number] B rand Name: Vitamin D3 Send Method: [...] Updated DateTime 08/22/2025 154.94 cm 26.8 kg/m2 04355.12 g Anahy Zimmer [place] - [facility] 08/22/2025 12:50:25 Social History None recorded. Functional Status None recorded. Mental Status None recorded. Family History Nothing Reported. Medical History No medical history recorded. Gynecological HistoryNo gynecological history recorded. Obstetrics History GPAL:G 0 P 0 0 0 0 Past Encounters Encounter ID Performer Location Encounter Start Date Encounter Closed Date Diagnosis/Indication Diagnosis SNOMED-CT Code Diagnosis ICD10 Code Diagnosis IMO Codes Diagnosis Note [id number] STACEY COELLO [facility] of [address] [address] 08/22/2025 12:43:56 08/22/2025 13:20:36 Bilateral referred otalgia of ears [id number] 227637 H92.03 M26.623 M79.11 The patient complains of [...] ID Erwin Member ID Guarantor Name 08/22/[address] [place] [address] [id number] Chyna Duggan [id number] Chyna Duggan Notes Date Note Type Note [...] ear drainage, or tinnitus. HALLE ARCHULETA MD [address] [place] [address], [phone], [place] - [facility] 08/23/2025 10:56:58 OBGyn Episode No OBEpisode recorded.
== END 2025-10-04 15:48 | disposition home or self-care (01) ==
LOC: HO.HUSH 15:20
PROVIDERS: PCP Internal Medicine; Visit Provider Nurse Practitioner Family
DX: N28.89 Other specified disorders of kidney and ureter (principal); N28.1 Cyst of kidney, acquired
CPT/HCPCS: 99213; G2211